=== PATIENT | female | born 1955 | race Caucasian/White ===

== ENCOUNTER 2016-04-05 11:24 | Emergency (ER) | payer BC ==
[2016-04-05] MEDS ORDERED: ONDANSETRON 4 MG VIAL ONE (11:47)
[2016-04-05] MEDS ORDERED: SODIUM CHLORIDE 0.9% 1,000 ML ONE (13:20)
== END 2016-04-05 15:15 | disposition home or self-care (01) ==
LOC: ER 11:24
DX: E86.0 Dehydration (principal); N18.9 Chronic kidney disease, unspecified; R33.9 Retention of urine, unspecified; N30.00 Acute cystitis without hematuria; Z98.890 Other specified postprocedural states
CPT/HCPCS: 36415; 51702; 80053; 81001; 85025; 87088; 96361; 96374